=== PATIENT | female | born 1955 | race Caucasian/White ===

== ENCOUNTER 2019-05-26 09:56 | Emergency (ER) | payer MEDICARE, MEDICAID ==
[~2019-05-26] VITALS: Ht 154.9 cm; Wt 65.0 kg
[~2019-05-26 09:56] MED LIST: ATEN25TA PO; ATEN50TA90; EZET10TA16; LANS30CA56; LIDOcaine 1% W/epiNEPHrine 1:100,000 20ml vial ONE; LYRICA; METF750T46; SIMV-42 PO; SITA1TAB2; TRAM50TA2; TRAZ150T78 PO; VILA40TA PO
[2019-05-26] MEDS ORDERED: TETanus/Pertussis (Acell)/Diphther VAC/PF (Tdap-Adult) 0.5ml syringe IMVAC ONE (11:00)
[2019-05-26] MEDS ORDERED: AMOX500C2 PO ×2 (11:53→11:58)
[2019-05-26 12:11] VITALS: BP 140/85
== END 2019-05-26 12:14 | disposition home or self-care (01) ==
LOC: ER 09:56
DX: S30.861A Insect bite (nonvenomous) of abdominal wall, initial encounter (principal); E11.9 Type 2 diabetes mellitus without complications; R05 Cough; R09.81 Nasal congestion; Z88.1 Allergy status to other antibiotic agents; Z79.84 Long term (current) use of oral hypoglycemic drugs; Z79.899 Other long term (current) drug therapy; W57.XXXA Bitten or stung by nonvenomous insect and other nonvenomous arthropods, initial encounter; Y93.89 Activity, other specified; Y92.89 Other specified places as the place of occurrence of the external cause; Y99.8 Other external cause status
CPT/HCPCS: 10120; 90471; 90715; 99284